=== PATIENT | female | born 1945 | race Caucasian/White ===

== ENCOUNTER 2021-01-21 14:01 | Inpatient (IN) | payer OTHER ==
[~2021-01-21] VITALS: Ht 157.5 cm; Wt 72.6 kg
[~2021-01-21 14:01] MED LIST: LIPITOR10 MG PO; PROTONIX40 M1 PO
[2021-01-21 14:03] VITALS: BP 169/68
[2021-01-21 14:38] LABS: URINE BILIRUBIN NEGATIVE (Negative); URINE BLOOD NEGATIVE (Negative); URINE CLARITY CLEAR; URINE COLOR YELLOW; URINE GLUCOSE-RANDOM* NEGATIVE (Negative); URINE KETONES 1+ (Negative); URINE LEUKOCYTES-REFLEX NEGATIVE (Negative); URINE NITRITE-REFLEX NEGATIVE (Negative); URINE PROTEIN (DIPSTICK) NEGATIVE (Negative); URINE UROBILINOGEN 0.2 E.U./dl (0.2-1.0)
[2021-01-21] MEDS ORDERED: LEVOTHYROXINE75 MCG PO (15:14)
[2021-01-21] MEDS ORDERED: FLEXERIL PO (15:14)
[2021-01-21 15:40] LABS: ABSOLUTE NEUTROPHILS 13.3 thou/uL (1.4-8.2); BASOPHILS 0.4 % (0.0-2.0); EOSINOPHILS 1.2 % (0.0-3.0); HEMATOCRIT 42.7 % (37.0-47.0); HEMOGLOBIN 13.9 gm/dL (12.0-15.0); LYMPHOCYTES 13.4 % (24.0-44.0); MCH 28.2 pg (26.0-34.0); MCHC 32.5 g/dL (28.0-37.0); MONOCYTES 7.9 % (1.0-8.0); PLATELET COUNT 204 thou/uL (150-400); POLYS 77.1 % (36.0-66.0); RBC 4.91 mil/uL (4.20-5.00); RDW 15.4 % (10.5-14.5); WBC 17.2 thou/uL (4.0-11.0)
[2021-01-21 15:51] LABS: CREATININE 0.9 mg/dL (0.6-1.0)
[2021-01-21 16:01] LABS: ALBUMIN 3.1 g/dL (3.4-5.0); DIRECT BILIRUBIN 0.2 mg/dL (<0.1-0.2); TOTAL BILIRUBIN 0.9 mg/dL (0.2-1.0); TOTAL PROTEIN 7.6 g/dL (6.4-8.2)
--- NOTE | 2021-01-21 16:49 | NUR ---
ER RNS UNABLE TO GET SUCCESSFUL LINE ON PT, IV TEAM PAGED AT THIS TIME. CT DELAYED DUE TO LOSS OF IV ACCESS
[2021-01-21 21:10] VITALS: BP 154/76
[2021-01-21 21:48] VITALS: BP 160/75
[2021-01-21] MEDS ORDERED: PROTONIX40 M2 PO (23:05)
[2021-01-21] MEDS ORDERED: ASPIRIN EC81 M1 PO (23:06)
[2021-01-21] MEDS ORDERED: ADVAIR 500-501 EACH INH (23:08)
[2021-01-21 23:51] LABS: CHOLESTEROL 161 mg/dL (<200); HDL CHOLESTEROL 81 mg/dL (>40); LDL CHOLESTEROL 71 mg/dL (<100); TRIGLYCERIDE 45 mg/dL (<150); VLDL 9 mg/dL (<40)
[2021-01-21 23:58] LABS: SERUM ASSESSMENT Clear
--- NOTE | 2021-01-22 02:02 | NUR ---
PT WAS ADMITTED TO THE UNIT FROM THE ER IN A STABLE CONDITION.PT C/O ABD PAIN,MANAGED WITH MED.PT AHD AN EPISODE OF NAUSEA IMMEDIATELY SHE TRANSFERRED FROM CART TO THE BED,MANAGED WITH MED.PT CONT OF B&B.ADMISSION HX,EDUCATION AND ASSESSMENT COMPLETED.PT ABLE TO MAKE HER NEEDS KNOW.CALL LIGHT WITHIN REACH.
[2021-01-22 05:39] LABS: HEMATOCRIT 39.1 % (37.0-47.0); HEMOGLOBIN 12.8 gm/dL (12.0-15.0); MCH 28.6 pg (26.0-34.0); MCHC 32.7 g/dL (28.0-37.0); MCV 87.6 fL (80.0-100.0); RBC 4.47 mil/uL (4.20-5.00); RDW 15.3 % (10.5-14.5); WBC 15.3 thou/uL (4.0-11.0)
[2021-01-22 06:31] LABS: ALBUMIN 2.6 g/dL (3.4-5.0); CALCIUM 8.5 mg/dL (8.5-10.1); CREATININE 0.9 mg/dL (0.6-1.0); POTASSIUM 4.6 mmol/L (3.5-5.1); TOTAL PROTEIN 6.7 g/dL (6.4-8.2)
--- NOTE | 2021-01-22 07:48 | EKG ---
[address] [place] [address] ELECTROCARDIOGRAM REPORT Name: HOLTRAÚL WILKS Room #: 440-P ADM IN M.R.#: [id number] Admission: 01/21/21 Attend Phys: Carlos Ordoñez MD Discharge: Date of : 45 Report #: [id number] [facility] ED Test Date: 2021-01-21 Test Time: 15:47:44 Pat Name: RAÚL HOLT Department: Room: 440 Gender: F Wax Specialist: : 1945 Requested By: Se Belle Order Number: [id number] : Juan Lemus Measurements Intervals [place] Rate: 93 P: 53 WY: 148 QRS: 16 QRSD: 86 T: 46 QT: 356 QTc: 443 Interpretive Statements Sinus rhythm Compared to ECG 08/24/2017 22:28:39 No significant changes Electronically Signed On 01-22-2021 7:48:41 [employer] by Juan Lemus [email or web address] <ELECTRONICALLY SIGNED> By: Juan Lemus MD, [facility] 01/22/21 0748 [id number] Juan Lemus MD, FACC /EPI
[2021-01-22 08:45] VITALS: BP 147/75
--- NOTE | 2021-01-22 10:06 | NUR ---
ASSUMED PT CARE THIS AM. PT IS ALERT & ORIENTED X4. PT HAS IV SITE ON RAC RUNNING NS @75ML/HR. PT IS UP WITH ASSISTCANCE X1 TO THE BEDSIDE COMMODE. PT IS ON 2L NC 02. PT C/O OF PAIN AND NAUSEA AND GIVEN PAIN AND NAUSEA MEDICATIONS PER PT REQUEST. WILL CONTINUE TO MONITOR PT. FOLLOW POC.
--- NOTE | 2021-01-22 11:12 | NUR ---
Discussed during los with the attending physician, vera in few days. GI consulted.
--- NOTE | 2021-01-22 15:44 | NUR ---
75 year old female who came into the ER with abdominal pain and associated nausea & vomiting. HX of gastritis prior to. Cm tired to visit with her at bedside, she had clear liquid diet and started having emesis. Cm got her emesis basin and cool cloth for her face. She will wanted to visits a little. A & o x 3, and able to make her needs know. Lives at home wit her son luci who is a nurse. She is independent, manage own medication. has a walking stick if needed. Drives vehicle. No hh or rehab in the past. Not vaccinated for COVID. She had covid in August 2020 and was at [facility] for 9 days per jimbo. CM visited with her son luci via phone call. No question or concerns voiced. He will be able to bring her home at dc. No anticipated dc needs. Will cont following if needs arise. Discussed during los with the attending physician possible ready for dc in few days.
[2021-01-22 16:29] VITALS: BP 135/67
[2021-01-22 19:52] VITALS: BP 137/59
--- NOTE | 2021-01-23 02:57 | NUR ---
PT C/O ABD PAIN AD DEJA,MANAGED WITH MED.PT UP WITH SBA TO THE BSC.PT CONT ON IVF AND IV ABX ORDERED.PT YOLANDE CLEAR LIQUID DIET.NO N/V NOTED SO FAR THIS SHIFT.PT PROGRESSING SLOWLY TOWARDS DC GOAL.CALL LIGHT WITHIN REACH.
[2021-01-23 05:19] VITALS: BP 121/67
[2021-01-23 07:48] VITALS: BP 120/52
[2021-01-23 09:03] LABS: BASOPHILS 0.9 % (0.0-2.0); EOSINOPHILS 2.7 % (0.0-3.0); HEMATOCRIT 35.2 % (37.0-47.0); HEMOGLOBIN 11.2 gm/dL (12.0-15.0); LYMPHOCYTES 12.5 % (24.0-44.0); MCH 28.2 pg (26.0-34.0); MCHC 31.8 g/dL (28.0-37.0); MCV 88.5 fL (80.0-100.0); MONOCYTES 7.3 % (1.0-8.0); PLATELET COUNT 162 thou/uL (150-400); POLYS 76.6 % (36.0-66.0); RBC 3.98 mil/uL (4.20-5.00); RDW 15.4 % (10.5-14.5); WBC 13.1 thou/uL (4.0-11.0)
[2021-01-23 09:13] LABS: ALBUMIN 2.1 g/dL (3.4-5.0); CALCIUM 8.1 mg/dL (8.5-10.1); POTASSIUM 4.3 mmol/L (3.5-5.1)
--- NOTE | 2021-01-23 10:51 | NUR ---
ASSUMED PT CARE THIS AM. PT IS ALERT & ORIENTED X4. PT HAS IV SITE ON RAC RUNNING NS @75ML/HR. PT C/O OF HEADACHE AND GAVE TYLENOL. PT USES 1L NC O2 PRN PER PT REQUEST. INFORMED PT THAT DR ADVANCE DIET TO FULL LIQUID. PT SON AT THE BEDSIDE. WILL CONTINUE TO MONITOR PT. FOLLOW POC.
[2021-01-23 15:52] VITALS: BP 150/62
[2021-01-23 20:02] VITALS: BP 128/55
--- NOTE | 2021-01-24 05:22 | NUR ---
RECEIVED CARE OF THIS PATIENT AT 1900. PATIENT ALERT AND ORIENTED X4. UP TO BSC WITH ASSIST. FLUIDS INFUSING PER RAC IV. C/O PAIN. MIRALAX GIVEN. STATED HAS NOT HAD A BM SINCE SHE HAS BEEN HERE. SLEPT OFF AND ON DURING NIGHT.
[2021-01-24 06:02] LABS: HEMATOCRIT 34.8 % (37.0-47.0); HEMOGLOBIN 11.3 gm/dL (12.0-15.0); MCH 28.5 pg (26.0-34.0); MCHC 32.5 g/dL (28.0-37.0); MCV 87.6 fL (80.0-100.0); RBC 3.97 mil/uL (4.20-5.00); RDW 15.4 % (10.5-14.5); WBC 9.9 thou/uL (4.0-11.0)
[2021-01-24 06:39] LABS: CALCIUM 8.2 mg/dL (8.5-10.1); POTASSIUM 4.4 mmol/L (3.5-5.1)
[2021-01-24 07:28] VITALS: BP 139/68
--- NOTE | 2021-01-24 09:44 | NUR ---
ASSUMED PT CARE THIS AM. PT IS ALERT & ORIENTED X4. PT HAS IV SITE ON RAC RUNNING NS @75ML/HR. PT IS UP WITH ASSIST X1 TO BEDSIDE COMMODE. PT IS ON 1L NC O2 PRN. PER NIGHT NURSE, PT C/O OF GAS AND BLOATING AND GIVEN MIRALAX. INFUSED SCHEDULED ANTIBIOTIC THIS AM. PT TOLERATED DIET WELL. WILL CONTINUE TO MONITOR PT. FOLLOW POC.
[2021-01-24] MEDS ORDERED: AUGMENTIN 875-1 EACH PO (13:16)
[2021-01-24 13:22] VITALS: BP 139/68
== END 2021-01-24 13:58 | disposition home or self-care (01) | DRG 438 ==
LOC: ER 14:01 → 4S 19:26 → EROBS 19:26 → 4S 21:32
PROVIDERS: Nurse Practitioner; Nurse Practitioner Family; ADMIT Hospitalist; ATTEND Hospitalist
DX: K85.00 Idiopathic acute pancreatitis without necrosis or infection (principal); E43 Unspecified severe protein-calorie malnutrition; R65.11 Systemic inflammatory response syndrome (SIRS) of non-infectious origin with acute organ dysfunction; E78.5 Hyperlipidemia, unspecified; E03.9 Hypothyroidism, unspecified; R53.81 Other malaise; K21.9 Gastro-esophageal reflux disease without esophagitis; M81.0 Age-related osteoporosis without current pathological fracture; R13.10 Dysphagia, unspecified; Z20.822 Contact with and (suspected) exposure to COVID-19; Z98.84 Bariatric surgery status; Z88.8 Allergy status to other drugs, medicaments and biological substances; Z82.49 Family history of ischemic heart disease and other diseases of the circulatory system; Z81.8 Family history of other mental and behavioral disorders; Z87.891 Personal history of nicotine dependence; Z80.0 Family history of malignant neoplasm of digestive organs; Z90.710 Acquired absence of both cervix and uterus; Z86.16 Personal history of COVID-19; Z68.29 Body mass index [BMI] 29.0-29.9, adult; Z79.82 Long term (current) use of aspirin; Z79.899 Other long term (current) drug therapy
CPT/HCPCS: 10100; 10102